=== PATIENT | female | born 1990 | race Caucasian/White ===

== ENCOUNTER 2018-09-01 05:16 | Emergency (ER) | payer BC ==
[~2018-09-01] VITALS: Ht 165.1 cm; Wt 83.3 kg
[2018-09-01 05:24] VITALS: BP 134/86
[2018-09-01] MEDS ORDERED: ACETAMINOPHEN 500 MG TABLET PO ONE (06:00)
--- NOTE | 2018-09-01 06:02 | NUR ---
PT AMBULATED TO RESTROOM WITH STEADY GAIT.
== END 2018-09-01 07:49 | disposition home or self-care (01) ==
LOC: ED 07:20
DX: S16.1XXA Strain of muscle, fascia and tendon at neck level, initial encounter (principal); S09.8XXA Other specified injuries of head, initial encounter; F10.129 Alcohol abuse with intoxication, unspecified; Y04.8XXA Assault by other bodily force, initial encounter; Y93.89 Activity, other specified; Y92.410 Unspecified street and highway as the place of occurrence of the external cause; Y99.8 Other external cause status
CPT/HCPCS: 70450; 72125; 99284